=== PATIENT | male | born 2000 | race Two or more races ===

== ENCOUNTER 2018-09-06 13:32 | Emergency (ER) | payer OTHER ==
[2018-09-06 13:43] VITALS: BP 136/73; PULSE 66; RESP 18; TEMP 98.6
--- NOTE | 2018-09-06 14:23 | ED ---
Back Pain HPI - General Chief Complaint: Back Pain/Injury Stated Complaint: Lower Back Pain Time Seen by Provider: 09/06/18 14:02 Source: patient Limitations: no limitations - History of Present Illness Initial Comments: Patient is a 18-year-old male presents emergency Department with low back pain. Patient reports that he was seen at another emergency Department for similar s ymptoms 2 months ago who diagnosed him with muscle sprain. 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 Patient reports the pain has gradually increased in severity. Patient reports the pain is alleviated when laying flat and exacerbated with flexion. Patient reports the pain is dull in character. Patient reports bilateral paraspinal tenderness in the lumbosacral region that occasionally radiates along the posterior aspect of both of her legs to the popliteal region. Patient denies taking medication to alleviate the pain. Patient denies having paresthesias, urinary or bladder incontinence. No red flags. - Related Data Home Medications Medication Instructions Recorded Confirmed No Known Home Medications 07/01/14 07/01/14 Allergies Allergy/AdvReac Type Severity Reaction Status Date / Time No Known Allergies Allergy Verified 09/06/18 13:42 Review of Systems ROS Statement: Those systems with pertinent positive or pertinent negative responses have been documented in the HPI. ROS Other: All systems not noted in ROS Statement are negative. Past Medical History Past Medical History: No Reported History History of Any Multi-Drug Resistant Organisms: None Reported Past Surgical History: No Surgical Hx Reported Past Psychological History: No Psychological Hx Reported Smoking Status: Never smoker Past Alcohol Use History: None Reported Past Drug Use History: None Reported General Exam - General Exam Comments Initial Comments: General: Well-developed well-nourished distress HEENT: Normocephalic/atraumatic, PERLL, pharynx erythema, swallowing well, EAC no erythema, no exudates, TM clear, no cervical lymph nodes Neck: Supple, nontender, trachea midline Chest/Lungs: Normal respirations, no signs of respiratory distress clear to auscultation bilaterally no wheezes, rales, rhonchi Cardiac: Regular rate and rhythm, normal S1-S2, no murmurs rubs or gallops Abdomen/GI: Soft nontender, bowel sounds equal or quadrant x4, no guarding, no rebound no CVA tenderness Musculoskeletal: Paraspinal tenderness with palpation on both sides in the lumbosacral region. Skin: Warmth, no rashes or lesions, no cyanosis or diaphoresis Neurologic: AAO x 3, CN 2-12 intact, Psychiatric: Mood and affect normal, judgment normal Limitations: no limitations Course Vital Signs 09/06/18 13:41 Temperature 98.6 F Pulse Rate 66 Respiratory 18 Rate Blood Pressure 136/73 O2 Sat by Pulse 100 Oximetry Medical Decision Making - Medical Decision Making Patient is a 18-year-old male presents emergency Department with low back pain. Distant history of physical examination I suspect the patient's pain to be a result of poor body mechanics from his occupation. While in the emergency department asked the patient to perform Fransisca exercises which involved maximal back extensions. Patient did report mild improvement in symptoms. At this point no imaging is warranted. Advised the patient to continue doing the back exercises and if symptoms do not improve to follow-up with physical therapy. Patient advised to return to emergency department if symptoms worsen. Case discussed with physician. Disposition Clinical Impression: Mechanical back pain Disposition: HOME SELF-CARE Condition: Stable Instructions (If sedation given, give patient instructions): Acute Low Back Pain (ED), Low Back Strain (ED), Lower Back Exercises (ED) Additional Instructions: Please perform lower back exercises as advised. Please follow up with physical therapy. Please return to emergency department if symptoms worsen. Please use proper body mechanics while working. Is patient prescribed a controlled substance at d/c from ED?: No Referrals: None,Stated [Primary Care Provider] - 1-2 days Time of Disposition: 14:26
== END 2018-09-06 14:55 | disposition home or self-care (01) ==
LOC: EC 13:32
DX: M54.5 Low back pain (principal)
CPT/HCPCS: 99283

== ENCOUNTER 2020-11-12 18:45 | Emergency (ER) | payer BC, OTHER ==
[2020-11-12 18:58] VITALS: TEMP 97.7
[2020-11-12] MEDS ORDERED: SODIUM CHLORIDE 0.9% 500 ML 500 ML IV STA (19:22)
--- NOTE | 2020-11-12 19:45 | ED ---
General Adult HPI - General Chief complaint: Abdominal Pain Stated complaint: Nausea/Vomiting/Dizziness Time Seen by Provider: 11/12/20 18:59 Source: patient Mode of arrival: ambulatory Limitations: no limitations - History of Present Illness Initial comments: Patient is a 20-year-old healthy male residing to the emergency Department with complaints of nausea and lightheadedness while at work today. 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 He states is never really felt like this before. He did take a break, drink some fluids and continued to feel this way so he went home. He states he stopped to get something to eat and was not able to eat it. He states his appetite is low today. He has been drinking water and Gatorade today. He's had no fevers or chills, no chest pain or shortness of breath. He states the last few days he's felt his normal self, eating his normal diet. He takes no medications, no pertinent past medical history. No complaints, he denies any dizziness or lightheadedness now, no nausea or vomiting. He is concerned for covid and requests testing. He denies any cough or congestion. He has no further complaints today. His vitals are stable upon arrival. - Related Data Previous Rx's Medication Instructions Recorded Cephalexin [Keflex] 500 mg PO Q6HR 7 Days #28 cap 11/12/20 Allergies Allergy/AdvReac Type Severity Reaction Status Date / Time No Known Allergies Allergy Verified 11/12/20 18:56 Review of Systems ROS Statement: Those systems with pertinent positive or pertinent negative responses have been documented in the HPI. ROS Other: All systems not noted in ROS Statement are negative. Past Medical History Past Medical History: No Reported History History of Any Multi-Drug Resistant Organisms: None Reported Past Surgical History: No Surgical Hx Reported Past Psychological History: No Psychological Hx Reported Smoking Status: Never smoker Past Alcohol Use History: None Reported Past Drug Use History: None Reported General Exam - General Exam Comments Initial Comments: GENERAL: Patient is well-developed and well-nourished. Patient is nontoxic and in no acute distress. HEAD: Atraumatic, normocephalic. EYES: Pupils equal round and reactive to light, extraocular movements intact, sclera anicteric, conjunctiva are normal. Eyelids were unremarkable. ENT: TMs normal, nares patent, oropharynx clear without exudates. Moist mucous membranes. NECK: Normal range of motion, supple without lymphadenopathy or JVD. LUNGS: Unlabored respirations. Breath sounds clear to auscultation bilaterally and equal. No wheezes rales or rhonchi. HEART: Regular rate and rhythm without murmurs, rubs or gallops. ABDOMEN: Soft, nontender, normoactive bowel sounds. No guarding, no rebound. No masses appreciated. : Deferred MUSCULOSKELETAL: Normal extremities with adequate strength and normal range of motion, no pitting or edema. No clubbing or cyanosis. NEUROLOGICAL: Patient is alert and oriented x 3. Motor and sensory are also intact. Cranial nerves II through XII grossly intact. Symmetrical smile. Normal speech, normal gait. PSYCH: Normal mood, normal affect. SKIN: Warm, Dry, normal turgor, no rashes or lesions noted. 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 He tried to eat something after he left work but had no appetite. He was concerned for Covid and requests testing today. Currently his exam is normal, his vitals are stable. He has no complaints right now, no further dizziness or lightheadedness. EKG shows normal sinus rhythm with sinus arrhythmia. Labs show a small white count 12.0, rest of labs are within normal limits. Urine shows 84 white blood cells, large leukocyte Estrace. Covid is negative. Patient states he has had a UTI in the past. He does admit to being sexually active but has no concerns for STDs. I did urge him to get tested for gonorrhea and chlamydia however he declines. I will give patient 1 g of Rocephin here in the ER and started him on Keflex for UTI. He is agreeable with this plan of care. I recommended following up with his primary care. Return parameters were discussed with him and he verbalized understanding. Case discussed with Dr. Eden. - Lab Data Result diagrams: 11/12/20 19:52 11/12/20 19:52 Lab Results 11/12/20 11/12/20 11/12/20 Range/Units 19:22 19:52 19:52 WBC 12.0 H (3.8-10.6) k/uL RBC 5.64 (4.30-5.90) m/uL Hgb 16.2 (13.0-17.5) gm/dL Hct 48.4 (39.0-53.0) % MCV 85.8 (80.0-100.0) fL MCH 28.7 (25.0-35.0) pg MCHC 33.5 (31.0-37.0) g/dL RDW 12.3 (11.5-15.5) % Plt Count 211 (150-450) k/uL MPV 7.3 Neutrophils % 83 % Lymphocytes % 11 % Monocytes % 3 % Eosinophils % 1 % Basophils % 1 % Neutrophils # 10.0 H (1.3-7.7) k/uL Lymphocytes # 1.3 (1.0-4.8) k/uL Monocytes # 0.4 (0-1.0) k/uL Eosinophils # 0.2 (0-0.7) k/uL Basophils # 0.1 (0-0.2) k/uL Sodium 139 (137-145) mmol/L Potassium 3.8 (3.5-5.1) mmol/L Chloride 100 (98-107) mmol/L Carbon Dioxide 27 (22-30) mmol/L Anion Gap 12 mmol/L BUN 15 (9-20) mg/dL Creatinine 0.79 (0.66-1.25) mg/dL Est GFR (CKD-EPI)AfAm >90 (>60 ml/min/1.73 sqM) Est GFR (CKD-EPI)NonAf >90 (>60 ml/min/1.73 sqM) Glucose 107 H (74-99) mg/dL Calcium 10.5 H (8.4-10.2) mg/dL Total Bilirubin 0.7 (0.2-1.3) mg/dL AST 31 (17-59) U/L ALT 19 (4-49) U/L Alkaline Phosphatase 81 (38-126) U/L Total Protein 8.4 H (6.3-8.2) g/dL Albumin 5.1 H (3.5-5.0) g/dL Urine Color Yellow Urine Appearance Cloudy (Clear) Urine pH 7.0 (5.0-8.0) Ur Specific [place] 1.020 (1.001-1.035) Urine Protein Negative (Negative) Urine Glucose (UA) Negative (Negative) Urine Ketones Trace H (Negative) Urine Blood Negative (Negative) Urine Nitrite Negative (Negative) Urine Bilirubin Negative (Negative) Urine Urobilinogen <2.0 (<2.0) mg/dL Ur Leukocyte Esterase Large H (Negative) Urine RBC 3 (0-5) /hpf Urine WBC 84 H (0-5) /hpf Urine Mucus Rare H (None) /hpf Coronavirus (PCR) (Not Detectd) 11/12/20 Range/Units 19:52 WBC (3.8-10.6) k/uL RBC (4.30-5.90) m/uL Hgb (13.0-17.5) gm/dL Hct (39.0-53.0) % MCV (80.0-100.0) fL MCH (25.0-35.0) pg MCHC (31.0-37.0) g/dL RDW (11.5-15.5) % Plt Count (150-450) k/uL MPV Neutrophils % % Lymphocytes % % Monocytes % % Eosinophils % % Basophils % % Neutrophils # (1.3-7.7) k/uL Lymphocytes # (1.0-4.8) k/uL Monocytes # (0-1.0) k/uL Eosinophils # (0-0.7) k/uL Basophils # (0-0.2) k/uL Sodium (137-145) mmol/L Potassium (3.5-5.1) mmol/L Chloride (98-107) mmol/L Carbon Dioxide (22-30) mmol/L Anion Gap mmol/L BUN (9-20) mg/dL Creatinine (0.66-1.25) mg/dL Est GFR (CKD-EPI)AfAm (>60 ml/min/1.73 sqM) Est GFR (CKD-EPI)NonAf (>60 ml/min/1.73 sqM) Glucose (74-99) mg/dL Calcium (8.4-10.2) mg/dL Total Bilirubin (0.2-1.3) mg/dL AST (17-59) U/L ALT (4-49) U/L Alkaline Phosphatase (38-126) U/L Total Protein (6.3-8.2) g/dL Albumin (3.5-5.0) g/dL Urine Color Urine Appearance (Clear) Urine pH (5.0-8.0) Ur Specific [place] (1.001-1.035) Urine Protein (Negative) Urine Glucose (UA) (Negative) Urine Ketones (Negative) Urine Blood (Negative) Urine Nitrite (Negative) Urine Bilirubin (Negative) Urine Urobilinogen (<2.0) mg/dL Ur Leukocyte Esterase (Negative) Urine RBC (0-5) /hpf Urine WBC (0-5) /hpf Urine Mucus (None) /hpf Coronavirus (PCR) Not Detected (Not Detectd) Disposition Clinical Impression: UTI (urinary tract infection) Disposition: HOME SELF-CARE Condition: Stable Instructions (If sedation given, give patient instructions): Urinary Tract Infection in Men (ED) Additional Instructions: Please return to the Emergency Department if symptoms worsen or any other nettie rns. Take antibiotics as prescribed. Drink plenty of fluids. Please follow-up with primary care. Prescriptions: Cephalexin [Keflex] 500 mg PO Q6HR 7 Days #28 cap Is patient prescribed a controlled substance at d/c from ED?: No Referrals: None,Stated [Primary Care Provider] - 1-2 days Time of Disposition: 21:24
[2020-11-12 20:05] LABS: Basophils # (A) 0.1 k/uL (0-0.2); Basophils % (A) 1 %; Eosinophils # (A) 0.2 k/uL (0-0.7); Eosinophils % (A) 1 %; HCT 48.4 % (39.0-53.0); HGB 16.2 gm/dL (13.0-17.5); Lymphocytes # (A) 1.3 k/uL (1.0-4.8); Lymphocytes % (A) 11 %; MCH 28.7 pg (25.0-35.0); MCHC 33.5 g/dL (31.0-37.0); MCV 85.8 fL (80.0-100.0); Mean Platelet Volume 7.3; Monocytes # (A) 0.4 k/uL (0-1.0); Monocytes % (A) 3 %; Neutrophils % (A) 83 %; Platelet Count 211 k/uL (150-450); RBC 5.64 m/uL (4.30-5.90); RDW 12.3 % (11.5-15.5)
[2020-11-12 20:17] LABS: ALT 19 U/L (4-49); AST 31 U/L (17-59); African American GFR (CKD) >90 (>60 ml/min/1.73 sqM); Albumin 5.1 g/dL (3.5-5.0); Alkaline Phosphatase 81 U/L (38-126); Anion Gap 12 mmol/L; Blood Urea Nitrogen 15 mg/dL (9-20); Calcium 10.5 mg/dL (8.4-10.2); Carbon Dioxide 27 mmol/L (22-30); Chloride 100 mmol/L (98-107); Glucose 107 mg/dL (74-99); Non-African American GFR(CKD) >90 (>60 ml/min/1.73 sqM); Potassium 3.8 mmol/L (3.5-5.1); Sodium 139 mmol/L (137-145); Total Bilirubin 0.7 mg/dL (0.2-1.3); Total Protein 8.4 g/dL (6.3-8.2)
[2020-11-12 21:13] LABS: Appearance,Urine Cloudy (Clear); Bilirubin,Urine Negative (Negative); Blood,Urine Negative (Negative); Color,Urine Yellow; Glucose,Urine (UA) Negative (Negative); Ketones,Urine Trace (Negative); Leukocyte Esterase,Urine Large (Negative); Mucus,Urine Rare /hpf; Nitrite,Urine Negative (Negative); Protein,Urine Negative (Negative); RBC,Urine 3 /hpf (0-5); Urobilinogen,Urine <2.0 mg/dL (<2.0); WBC,Urine 84 /hpf (0-5)
[2020-11-12] MEDS ORDERED: cefTRIAXone IN SWFI 1,000 MG/10 ML SYRINGE IVP STA (21:20)
[2020-11-12 21:38] VITALS: BP 127/71; PULSE 60; RESP 16
== END 2020-11-12 21:39 | disposition home or self-care (01) ==
LOC: EC 18:45
DX: N39.0 Urinary tract infection, site not specified (principal); R42 Dizziness and giddiness; Z20.822 Contact with and (suspected) exposure to COVID-19
CPT/HCPCS: 36415; 93005; 80053; 85025; 81001; 87086; 87635; 99284; 96374; J0696